=== PATIENT | male | born 1955 | race Caucasian/White ===

== ENCOUNTER 2022-08-10 07:54 | Emergency (ER) | payer OTHER ==
[2022-08-10] MEDS ORDERED: Morphine 4 MG/ML VIAL ONE (09:00)
[2022-08-10] MEDS ORDERED: Sodium Chloride 0.9% 1,000 ML ONE (09:00)
[2022-08-10] MEDS ORDERED: KETAMINE 100 MG/ML (5ML VIAL) ONE (09:21)
[2022-08-10] MEDS ORDERED: Midazolam HCl 5 mg/ml Vial ONE (10:06)
[2022-08-10] MEDS ORDERED: Ketorolac Tromethamine 30 MG/ML VIAL ONE (11:05)
== END 2022-08-10 11:36 ==
LOC: NAV ERS 07:54
DX: S43.015A Anterior dislocation of left humerus, initial encounter (principal); I10 Essential (primary) hypertension; Z79.899 Other long term (current) drug therapy; W01.10XA Fall on same level from slipping, tripping and stumbling with subsequent striking against unspecified object, initial encounter
CPT/HCPCS: 23650; 96374; 96375; 99152; 99153; J1885; J2250; J2270; J7050